=== PATIENT | male | born 1985 | race Caucasian/White ===

== ENCOUNTER 2017-02-23 18:25 | Emergency (ER) | payer SELFPAY ==
[~2017-02-23] VITALS: Ht 165.1 cm; Wt 100.0 kg
[2017-02-23] MEDS ORDERED: KETOROLAC TROMETHAMINE 60 MG/2 ML VIAL IM ONE (20:30)
[2017-02-23 21:01] VITALS: BP 142/87
== END 2017-02-23 21:13 | disposition home or self-care (01) ==
LOC: EMS 18:32
DX: S40.022A Contusion of left upper arm, initial encounter (principal); Y08.89XA Assault by other specified means, initial encounter; Y93.89 Activity, other specified; Y92.89 Other specified places as the place of occurrence of the external cause; Y99.8 Other external cause status
CPT/HCPCS: 29280; 73080; 73090; 96372; 99284; J1885